=== PATIENT | male | born 2005 | race Two or more races ===

== ENCOUNTER → 2024-06-21 | Outpatient (CLI) | payer BC, SELFPAY ==
--- NOTE | 2024-06-21 17:09 | XR_ITS ---
Examination: PA lateral chest 2 views TECHNIQUE: Upright PA lateral chest 2 views Exam date and time: June 21, 2024 1722 hours Comparison February 23, 2022 INDICATIONS: Coughing 3 weeks. FINDINGS: Median sternotomy wires. Normal heart size. No pneumonia or pulmonary edema Osseous structures are intact IMPRESSION: No lobar pneumonia identified
== END | disposition home or self-care (01) ==
LOC: CDIM 17:07
PROVIDERS: PCP Nurse Practitioner Family; Referring Provider Nurse Practitioner Family; Visit Provider Nurse Practitioner Family
DX: R07.9 Chest pain, unspecified (principal); R06.02 Shortness of breath; R05.9 Cough, unspecified
CPT/HCPCS: 71046